=== PATIENT | male | born 1970 | race Asian ===

== ENCOUNTER 2017-10-01 12:17 | Emergency (ER) | payer SELFPAY ==
[~2017-10-01] VITALS: Ht 185.4 cm; Wt 83.9 kg
[2017-10-01 12:45] VITALS: BP 148/97
[2017-10-01] MEDS ORDERED: CEPHALEXIN500 MG ORAL (12:56)
[2017-10-01] MEDS ORDERED: BACTRIM DS TAB1 EAC1 ORAL (12:56)
--- NOTE | 2017-10-01 12:57 | Emergency Room Report ---
History of Present Illness General Chief Complaint: Skin Rash/Abscess Source: Patient Present Illness HPI 47-year-old male patient presents ER complaining of spider bite on right lower leg. Reports that he was camping this past weekend when he felt something bite his leg. Reports did not see spider or bug that bit him. reports leg began to swell 3 days ago and has increased since that time. Denies pain with ambulation. Denies fever, chest pain, shortness of breath, vomiting, abdominal pain. Denies other acute symptoms. Reports while pruritus of leg. Reports took antibiotic yesterday given to him by friend, unsure of name of antibiotic. Denies history of diabetes. Allergies: Coded Allergies: No Known Allergies (Unverified , 10/01/17) Patient History Past Medical History: see triage record Reviewed Nursing Documentation: PMH: Agreed; PSxH: Agreed Review of Systems All Other Systems: negative except mentioned in HPI Physical Exam Vital Signs Date Time Temp Pulse Resp B/P (MAP) Pulse Ox O2 Delivery O2 Flow Rate FiO2 10/01/17 12:25 98.2 78 16 148/97 96 Room Air 98.2 Sp02 EP Interpretation: reviewed, normal General Appearance: well appearing, no apparent distress, alert, GCS 15, non- toxic Head: normocephalic, atraumatic Eyes: bilateral eye normal inspection, bilateral eye PERRL Neck: full range of motion Respiratory: lungs clear, normal breath sounds, no rhonchi, no respiratory distress, no accessory muscle use, no wheezing, speaking full sentences Cardiovascular #1: regular rate, rhythm, no edema Cardiovascular #2: 2+ dorsalis pedis (R), 2+ dorsalis pedis (L) Musculoskeletal: back normal, digits/nails normal, gait/station normal, normal range of motion, non-tender, no calf tenderness, Lebron's Sign negative Neurologic: alert, oriented x3, responsive, motor strength/tone normal, sensory intact Psychiatric: mood/affect normal Skin: other - cellulitis of the right lower leg extending to ankle, no active drainage, no pus, no erythema, no central clearing, no erythema migrans, no vesicles, no crepitus, no scallpoed borders, no TTP Medical Decision Making PA Attestation Dr. Otto is my supervising Physician whom patient management has been discussed with. Diagnostic Impression: Primary Impression: Cellulitis ER Course Pt. presents to the ED c/o cellulitis.. Ddx considered but are not limited to rash, cellulitis, abscess, atopic dermatitis, angioedema., allergic reaction, DVT. Vital signs: are WNL, pt. is afebrile ER COURSE: physical exam shows swelling and erythema of right lower leg extending from lower polk to ankle. No active drainage, no crepitus. Patient walking without difficulty, nontoxic appearing. PE consistent with cellulitis. Not indicated of abscess. Due to lack of systemic symptoms, patient general appearance, patient does not require IV antibiotics, labs, imaging or admission at this time FOR outpatient treatment. provide first dose of antibiotics in ER. Instructed patient follow-up with PCP or return to ER in 2-3 days for new or worsening of symptoms. Patient seen and evaluated by Dr. Otto, agrees on treatment and plan. DISCHARGE: -Rx provided for Keflex -Rx provided for Bactrim At this time pt. is stable for d/c to home. Patient resting comfortably in no acute distress, nontoxic appearing. Will provide printed patient care instructions, and any necessary prescriptions. Patient instructed to complete current course of antibiotics. Care plan and follow up instructions have been discussed with the patient prior to discharge. Patient instructed to follow-up with primary care provider in 3 - 5 days and discuss further referral to sales management intern and vascular physician. Patient questions asked and answered. ER precautions given. Patient instructed to return to ER immediately for any new or worsening of symptoms including but not limited to increasing SOB, persistent fever, intractable vomiting, calf pain. - Please note that this Emergency Department Report was dictated using [employer] director of strategy technology software, occasionally this can lead to erroneous entry secondary to interpretation by the dictation equipment. Last Vital Signs Date Time Temp Pulse Resp B/P (MAP) Pulse Ox O2 Delivery O2 Flow Rate FiO2 10/01/17 12:45 98.2 78 16 148/97 96 Room Air 98.2 Disposition: HOME, SELF-CARE Condition: Stable Scripts Trimethoprim/Sulfamethoxazole 160/800* (BACTRIM DS TABLET*) 1 Each Tablet 1 TAB ORAL TWICE A DAY for 7 Days, #13 TAB Prov: Ramírez Hwang P.A. 10/01/17 Cephalexin* (KEFLEX*) 500 Mg Capsule 500 MG ORAL EVERY 12 HOURS, #13 CAP 0 Refills Prov: EriRamírez 10/01/17 Patient Instructions: Cellulitis, [id number] Additional Instructions: Followup with primary care provider or return to ER in 2-3 days for wound check. Take medications as directed. Take Benadryl for itching symptoms. Patient questions asked and answered. ER precautions given, patient instructed to return to ER immediately for any new or worsening of symptoms including but not limited to fever, chest pain, shortness of breath, intractable vomiting, abdominal pain, worsening of swelling and erythema. Ramírez Hwang Oct 01, 2017 12:57
[2017-10-01] MEDS ORDERED: Cephalexin 500mg cap ORAL ONE (13:00)
[2017-10-01] MEDS ORDERED: Bactrim-DS 1 tab ORAL ONE (13:00)
[2017-10-01 13:05] VITALS: BP 148/97
== END 2017-10-01 13:15 | disposition home or self-care (01) ==
LOC: EMR 13:11
DX: L03.115 Cellulitis of right lower limb (principal)
CPT/HCPCS: 99284